=== PATIENT | male | born 1995 | race Asian ===

== ENCOUNTER 2019-09-16 11:21 | Emergency (ER) | payer OTHER ==
[~2019-09-16] VITALS: Ht 167.6 cm; Wt 78.5 kg
[2019-09-16 11:34] VITALS: BP 134/74; Ht 167.6 cm; Wt 78.5 kg
== END 2019-09-16 14:55 | disposition home or self-care (01) ==
LOC: ED 11:21
DX: S22.089A Unspecified fracture of T11-T12 vertebra, initial encounter for closed fracture (principal); X58.XXXA Exposure to other specified factors, initial encounter; Y93.89 Activity, other specified; Y92.89 Other specified places as the place of occurrence of the external cause; Y99.8 Other external cause status

== ENCOUNTER 2020-04-12 07:02 | Emergency (ER) | payer OTHER ==
[~2020-04-12] VITALS: Ht 172.7 cm; Wt 78.9 kg
[2020-04-12 07:40] VITALS: BP 135/88; Ht 172.7 cm; Wt 78.9 kg
== END 2020-04-12 08:40 | disposition home or self-care (01) ==
LOC: ED 07:02
DX: R13.10 Dysphagia, unspecified (principal)
CPT/HCPCS: Q0092